=== PATIENT | male | born 1940 | race Caucasian/White ===

== ENCOUNTER 2020-01-01 06:22 | Inpatient (IN) | payer OTHER, BC ==
[~2020-01-01] VITALS: Ht 162.6 cm; Wt 65.8 kg
[2020-01-01 07:25] VITALS: BP 144/79
[2020-01-01] MEDS ORDERED: TAMSULOSIN HCL0.4 MG PO (08:40)
[2020-01-01] MEDS ORDERED: PRA20 PO (08:40)
[2020-01-01] MEDS ORDERED: TOPROL XL25 MG PO (08:41)
[2020-01-01] MEDS ORDERED: LOSARTAN POTASS50 M1 PO (08:41)
[2020-01-01] MEDS ORDERED: MULTIPLE VITAMI1 T13 PO (08:42)
[2020-01-01] MEDS ORDERED: VITAMIN C PUR1000 M1 PO (08:42)
[2020-01-01] MEDS ORDERED: VITAMIN B122500 MC1 (08:43)
[2020-01-01] MEDS ORDERED: ZINC50 M4 PO (08:43)
[2020-01-01 13:18] VITALS: BP 131/79
[2020-01-01 16:28] VITALS: BP 165/78
[2020-01-01 20:43] VITALS: BP 143/79
[2020-01-02 06:01] VITALS: BP 138/83
[2020-01-02 06:34] LABS: BASOPHIL % 0.2 % (0-2); PLATELET COUNT 285 x10^3mcL (130-400); RED CELL DISTRIBUTION WIDTH 13.3 % (11.5-14.5)
[2020-01-02 06:58] LABS: CALCIUM 8.2 mg/dL (8.5-10.1); CARBON DIOXIDE 24.6 mmol/L (21-32); CHLORIDE SERUM 103 mmol/L (98-107); CREATININE SERUM 0.9 mg/dL (0.7-1.3); GLUCOSE SERUM 111 mg/dL (74-106); POTASSIUM SERUM 4.4 mmol/L (3.5-5.1); SODIUM SERUM 138 mmol/L (136-145)
[2020-01-02 08:00] VITALS: BP 178/94
[2020-01-02 11:52] VITALS: BP 178/94
== END 2020-01-02 12:45 | disposition home or self-care (01) | DRG 470 ==
LOC: MU 06:22 → DU 07:30 → MU 12:43
PROVIDERS: ADMIT Orthopaedic Surgery
PROC: 0SR904A Replacement of Right Hip Joint with Ceramic on Polyethylene Synthetic Substitute, Uncemented, Open Approach (ICD-10-PCS; principal; 2020-01-01 07:30)
DX: M16.11 Unilateral primary osteoarthritis, right hip (principal); Z88.8 Allergy status to other drugs, medicaments and biological substances; I10 Essential (primary) hypertension; Z90.49 Acquired absence of other specified parts of digestive tract; Z96.652 Presence of left artificial knee joint
CPT/HCPCS: 97112-GP; 97116-GP; 97530-GP; G0378; J0690; J1100; J1170; J1885; J2270; J2405; J3010; J3490; J7030; Q0092